=== PATIENT | male | born 1950 | race Caucasian/White ===

== ENCOUNTER 2025-03-28 02:51 | Emergency (ER) | payer MEDICARE, SELFPAY ==
[2025-03-28 02:56] VITALS: BMI 35.8
[2025-03-28 02:58] LABS: Glucose - Point of Care 89 mg/dl (70-99)
[2025-03-28 03:06] VITALS: BP 160/88
[2025-03-28 03:17] LABS: % Basophils 0.4 % (0-2); % Eosinophils 0.1 % (0-6); % Immature Granulocytes 0.4 % (0-0.5); % Lymphocytes 11.2 % (20.5-51.1); % Monocytes 5.5 % (1.7-9.3); % Neutrophils 82.4 % (42.2-75.2); Absolute Monocytes 0.5 10^3/uL (0.1-0.6); Hematocrit 34.6 % (39.0-52.0); Hemoglobin 11.3 g/dL (13.0-18.0); Mean Corp Hgb Conc. 32.7 g/dL (33.0-37.0); Mean Corpuscular Hgb 28.1 pg (27.0-31.0); Mean Corpuscular Volume 86.1 fL (80.0-94.0); Mean Platelet Volume 9.1 fL (7.4-10.4); Nucleated Red Blood Cells % 0 % (-); Platelet Count 214 10^3/uL (130-400); Red Blood Cell Count 4.02 10^6/uL (4.70-6.10); Red Cell Dist. Width 14.8 % (11.5-14.5); White Blood Cell Count 8.5 10^3/uL (4.8-10.8)
--- NOTE | 2025-03-28 03:39 | ED.GENMED ---
History of Present Illness
General
Chief Complaint: Blood Sugar Problem
Source: patient and ambulance crew
Exam Limitations: none
Time Seen by Provider: 03/28/25 03:30
Nursing documentation reviewed up to this point in time: agreed with
History of Present Illness
History of Present Illness:
This is a 74-year-old gentleman who has longstanding history of [id number] diabetes, maintained on glimepiride 4 mg once daily. He also has history of hypertension, chronic kidney disease stage IV, diabetic retinal disease.
He states his blood sugars generally very well-controlled with hemoglobin A1c of 6.5.
More recently, 1 week ago he was acutely hospitalized for 4 days at [facility] after noticing vision changes of his right eye. His ophthalmic tech was concerned for stroke. While hospitalized patient noted to be significantly
hypertensive with systolic blood pressure of 200. He was started on labetalol as well as hydralazine. Coreg was discontinued. He was also started on Plavix and aspirin. Inpatient workup negative for stroke. Diagnosed with retinal branch artery
occlusion.
He presents via EMS tonight after suffering 2 episodes of hypoglycemia at home this evening. Patient states he has been a diabetic for the past 20 years and no previous episodes of hypoglycemia.
Prehospital Accu-Chek 61. He was given 250 mL IV D10 with prompt resolution of confusion.
Accu-Chek upon arrival 89.
Patient had a telehealth visit with his PCP yesterday.
He also follows regularly with nephrology.
During hospitalization at [facility]. Creatinine noted to be 2.79. Trending up from 2.49 previously.
Hemoglobin A1c 6.0.
Past History
Past History
ED Past Medical History: HTN, Hypercholesterolemia, NIDDM, Renal failure (Chronic kidney disease stage IV) and Other (Right eye retinal branch artery occlusion February 2025)
ED Past Surgical History: None
Social History
Tobacco: Non-smoker
Alcohol: None
Living: with family
Employment: Retired
Family History
Family History: Other (Noncontributory)
Phy Exam
Physical Exam
Physical Exam:
GENERAL: 74-year-old gentleman appears his stated age, awake and alert, oriented x 3, pleasant and easily communicative. In no acute distress.
EYE: pupils equal. anicteric
NECK: Supple, nontender, no meningismus, no significant adenopathy.
ENT: oral mucosa is moist. No rhinorrhea.
CARDIAC: Regular rate and rhythm. no murmur.
LUNGS: Clear breath sounds bilaterally, no acute respiratory distress, no wheezes/rales/rhonchi
ABDOMEN: Rotund, soft, nondistended, without focal tenderness
NEUROLOGICAL: Alert and oriented x3, no focal neuro deficits.
SKIN: Warm and dry, normal color, skin intact. No rash.
MUSCULOSKELETAL: No C/C/E. peripheral pulses are full and equal b/l. No palpable tenderness.
PSYCH: Normal and appropriate interaction.
Course
Orders/Labs/Results
Orders:
Orders
03/28/25 03:07
Complete Blood Count/With Diff Urgent
Comprehensive Metabolic Panel Urgent
03/28/25 05:26
Bedside Glucose- Treatment ONCE
Abnormal Lab Results
03/28/25 03/28/25 03/28/25
03:07 04:20 05:27
RBC 4.02 L 10^6/uL
(4.70-6.10)
Hgb 11.3 L g/dL
(13.0-18.0)
Hct 34.6 L %
(39.0-52.0)
MCHC 32.7 L g/dL
(33.0-37.0)
RDW 14.8 H %
(11.5-14.5)
Absolute Neuts (auto) 7.0 H 10^3/uL
(1.4-6.5)
Absolute Lymphs (auto) 1.0 L 10^3/uL
(1.2-3.4)
Neutrophils % 82.4 H %
(42.2-75.2)
Lymphocytes % 11.2 L %
(20.5-51.1)
Chloride 108 H mmol/L
(98-107)
BUN 60 H mg/dl
(9-20)
Creatinine 2.8 H mg/dL
(0.7-1.3)
POC Glucose 64 L mg/dl 113 H mg/dl
(70-99) (70-99)
03/28/25 03:07
03/28/25 03:07
Vital Signs
Initial and Last Documented VS:
Initial Vital Signs
Temp
97.4 F
03/28/25 02:56
Last Documented Vital Signs
Temp Pulse Resp BP Pulse Ox
97.4 F 70 18 158/82 96
03/28/25 02:56 03/28/25 03:06 03/28/25 03:06 03/28/25 04:00 03/28/25 03:06
MDM/Problems Addressed
Differential Diagnosis Includes:
Patient presents with recurrent hypoglycemia in setting of sulfonylurea accompanied with chronic kidney disease.
Systolic blood pressure mildly elevated at 160 but appears to be patient's current baseline.
Overall well in appearance. Appears euvolemic.
Labs are pending. Concern for progression of chronic kidney disease.
Will continue to monitor, assess for potential recurrent hypoglycemia. Will offer oral complex carbohydrate.
Going forward, would recommend decreasing dose of Amaryl from 4 mg to 2 mg daily.
MDM/Problems Addressed:
Diabetes, hypertension, chronic kidney disease
Chronic conditions affecting care: DM, HTN and Kidney disease
*Pulse Oximetry
Patient hypoxic: no
*[place]mer Regulator Interpretation
Rate: normal
Interpretation: normal
Rhythm: sinus
*Critical Care Note
Total Time (30-74mins, 75-104mins- exclusive of procedures): Not Applicable
Update Note
Update Note:
05:30
Blood sugar drifted down to 64 but after consuming a meal has trended up to 88 and now is 113.
Labs remarkable for creatinine of 2.8. Was 2.79 while recently hospitalized.
Patient will be discharged to home. Recommend he decrease his Amaryl dose to 2 mg once daily.
Prompt follow-up with PCP as well as agricultural inspector.
ED Attending Note
-
Portions of this chart may have been created with voice recognition software.� Occasional wrong word or��sound alike� substitutions may have occurred due to the inherent limitations of voice recognition software.
Discharge Plan
Departure
Patient Disposition: Home (Routine Discharge)
Date of Disposition: 03/28/25
Time of Disposition: 05:34
Patient with high blood pressure during this ER visit?: No
Condition: Good
Discharge Problem:
Hypoglycemia associated with diabetes
Instructions: Low blood sugar in people with diabetes
Prescriptions:
No Action
cyclobenzaprine 10 mg Tablet
10 mg PO HS
clonidine HCl 0.1 mg Tablet
0.2 mg PO BID
clopidogrel 75 mg Tablet
75 mg PO DAILY
aspirin 81 mg Capsule,Delayed Release(Dr/Ec)
81 mg PO DAILY
citalopram 20 mg Tablet
20 mg PO DAILY
amlodipine 10 mg Tablet
10 mg PO DAILY
furosemide 40 mg Tablet
40 mg PO DAILY
atorvastatin 40 mg Tablet
40 mg PO HS
donepezil 5 mg Tablet
5 mg PO HS
labetalol 200 mg Tablet
200 mg PO BID
tramadol 50 mg Tablet
100 mg PO Q6H PRN (Reason: pain moderate )
famotidine 20 mg Tablet
20 mg PO BID
glimepiride 4 mg Tablet
4 mg PO BID
montelukast 10 mg Tablet
10 mg PO DAILY
hydralazine 50 mg Tablet
50 mg PO QID
olmesartan 40 mg Tablet
40 mg PO DAILY
dapagliflozin propanediol 10 mg Tablet
10 mg PO DAILY
Referrals:
Brennen Gilbert, DO [Family Provider, Family Practice] - Call in 1-3 days for appt
UNKNOWN - PT DOES,NOT KNOW [Unknown Provider]
Activity Restrictions/Additional Instructions:
Decrease your Amaryl dose to 2 mg once daily in the a.m.
Continue all other medications.
Follow-up promptly with your primary care physician as well as your agricultural inspector.
Over the next several days I want you to monitor your blood sugar often at least 4 times daily.
Interventions
Interventions:
*Risk Screen - Suicide Last Done: 03/28/25 02:56
*General Assessment Last Done: 03/28/25 02:56
*Neglect/Abuse Screening Last Done: 03/28/25 02:56
*ED- Fall Risk Assessment Last Done: 03/28/25 02:56
*ED COVID-19 Vaccine History Last Done: 03/28/25 02:56
ED- Neurological Assessment Last Done: 03/28/25 02:56
Discharge Date and Time
Print Language: GERMAN
[2025-03-28 03:42] LABS: ALT (SGPT) 41 U/L (0-50); AST (SGOT) 39 U/L (17-59); Albumin 4.3 g/dl (3.5-5.0); Alkaline Phosphatase 98 U/L (38-126); Blood Urea Nitrogen 60 mg/dl (9-20); Carbon Dioxide 23 mmol/L (22-30); Chloride 108 mmol/L (98-107); Estimated Creatinine Clearance 27 ml/min; Glucose 88 mg/dl (70-99); Potassium 4.1 mmol/L (3.5-5.1); Sodium 141 mmol/L (135-145); Total Bilirubin 0.5 mg/dl (0.2-1.3); Total Protein 6.8 g/dl (6.3-8.2); eGFR 22.81
[2025-03-28 04:00] VITALS: BP 158/82
[2025-03-28 04:21] LABS: Glucose - Point of Care 64 mg/dl (70-99)
[2025-03-28 04:49] LABS: Glucose - Point of Care 88 mg/dl (70-99)
[2025-03-28 05:00] VITALS: BP 153/75
[2025-03-28 05:29] LABS: Glucose - Point of Care 113 mg/dl (70-99)
[2025-03-28 05:55] VITALS: BP 158/88
== END 2025-03-28 06:50 | disposition home or self-care (01) ==
LOC: EMR 02:51
PROVIDERS: EMERGENCY PHYSICIAN Emergency Medicine; FAMILY PHYSICIAN Family Medicine
DX: E11.649 Type 2 diabetes mellitus with hypoglycemia without coma (principal); I12.9 Hypertensive chronic kidney disease with stage 1 through stage 4 chronic kidney disease, or unspecified chronic kidney disease; N18.4 Chronic kidney disease, stage 4 (severe); E11.22 Type 2 diabetes mellitus with diabetic chronic kidney disease; E11.319 Type 2 diabetes mellitus with unspecified diabetic retinopathy without macular edema; H36 Retinal disorders in diseases classified elsewhere; E78.00 Pure hypercholesterolemia, unspecified; H34.231 Retinal artery branch occlusion, right eye; Z79.84 Long term (current) use of oral hypoglycemic drugs
CPT/HCPCS: 99283; 80053; 82962; 85025

== ENCOUNTER 2025-03-28 21:36 | Inpatient (IN) | payer MEDICARE, SELFPAY ==
[2025-03-28 18:36] VITALS: BP 150/96
[2025-03-28 18:39] LABS: Glucose - Point of Care 53 mg/dl (70-99)
[2025-03-28 18:58] LABS: Glucose - Point of Care 56 mg/dl (70-99)
--- NOTE | 2025-03-28 18:59 | ED.GENMED ---
History of Present Illness
General
Chief Complaint: Blood Sugar Problem
Time Seen by Provider: 03/28/25 18:58
History of Present Illness
History of Present Illness:
TIME OF INITIAL ENCOUNTER:
HPI: Yesterday, the patient was found to be confused. He is a diabetic on glimepiride 4 mg twice daily. EMS noted that he was hypoglycemic and was given D10 at his house and his blood sugar improved. EMS left without transporting the patient to
the hospital. The patient then became confused again and came into the hospital and received additional D10 last night. When he came in last night his initial blood sugar 61, was given 250 mL of D10. It was recommended that he decrease his Amaryl
dosing to 2 mg twice daily. He did take his lower dose of Amaryl this morning. Despite the lower dose, he had additional periods of confusion. Initial blood sugar here was 56 (44 in the lab). Family does not have a glucometer at home.
EXAM:
GENERAL: The patient appears chronically weak and debilitated
HEENT: Moist oral mucosa
CARDIOVASCULAR: No murmurs, normal heart rate, regular rhythm, No chest wall tenderness
PULMONARY: No respiratory distress, breath sounds are clear and equal
ABDOMEN: Soft with no peritoneal signs, no tenderness
NEUROLOGIC: Fair strength all extremities, no coordination deficits
PSYCHIATRIC: Appropriate mental status, normal insight and judgement
EXTREMITIES: Nontender, bilateral lower extremity edema, moves all extremities equally
SKIN: Chronic skin lesions noted right greater than left toes
NUMBER AND COMPLEXITY OF PROBLEMS ADDRESSED AT THE ENCOUNTER
� Chronic conditions affecting care: CKD, NIDDM, high blood pressure
� Acute Exacerbation and/or Progression of Chronic Illness: This is an acute problem
� Differential Diagnosis includes: Adverse side effect from glimepiride, glimepiride overdose, poorly controlled diabetes
AMOUNT AND/OR COMPLEXITY OF DATA TO BE REVIEWED AND ANALYZED
� I performed an independent evaluation of and my interpretation is:
EKG:
CT:
X-rays:
Laboratory Studies: White count 9.8, hemoglobin 12.3. Initial blood sugar upon arrival here is 56 by fingerstick and then 44 in the lab
Other:
� Review of other/old records: Review of the records from last night: He was at [facility] recently and was found to be hypertensive in the setting of vision changes of the right eye. He was initially on labetalol and
hydralazine and then placed on Plavix and aspirin. He was diagnosed with branch retinal artery occlusion.
� Clinical information was obtained by an independent historian: Spoke to son at bedside
� Prescriptions/Medications Considered but not given:
� Further testing considered but not performed:
RISK OF COMPLICATIONS AND/OR MORBIDITY OR MORTALITY OF PATIENT MANAGEMENT
� Social determinants of health affecting care: Lives at home, does not check his blood sugars
� Discussion with other providers: I have asked Dr. Pastor, hospitalist to keep her further observation
� Escalation of care including admission/observation vs risk of discharge considered: This is the third time that the patient sought medical attention for hypoglycemia. Blood sugar again improves with 500 mL of D10 and he was
able to eat here. However he still does not have a glucometer at home. Blood sugar went up to as high as 215 and then rapidly went down to 156 45 minutes later. Consider discharge however the patient's son is very concerned about his blood sugar
fluctuation and he does not check his blood sugars at home. The patient ordered a glucometer at home and that will not arrive until tomorrow. He apparently had rather significant symptoms when he was hypoglycemic.
ANY OTHER UPDATES:
Past History
Past History
ED Past Medical History: HTN, Hypercholesterolemia, NIDDM, Renal failure (Chronic kidney disease stage IV) and Other (Right eye retinal branch artery occlusion February 2025)
ED Past Surgical History: None
Social History
Tobacco: Non-smoker
Alcohol: None
Living: with family
Employment: Retired
Family History
Family History: Other (Noncontributory)
Phy Exam
Physical Exam
Physical Exam:
See HPI
Course
Orders/Labs/Results
Orders:
Orders
03/28/25 Dinner
2000 calorie (17 carb) Diabetic
At Your Request: Limited Participation
Does patient need a safe tray?: No
03/28/25 18:55
Complete Blood Count/With Diff Urgent
Comprehensive Metabolic Panel Urgent
TSH Reflex To Free T4 Urgent
Comment: ADD ON
03/28/25 18:57
Dextrose 50%-Water [Dextrose 50% Syringe] 25 grams .ROUTE .STK-MED ONE
03/28/25 19:00
Dextrose 10%/Water 500 ml [D10w] 500 ml IV 500 mls/hr
03/28/25 19:12
Bedside Glucose- Treatment ONCE
03/28/25 20:15
Bedside Glucose- Treatment ONCE
03/28/25 20:56
Bedside Glucose Monitoring-ONCE As Directed
03/28/25 20:58
Admit/Transfer Patient As Directed
Co-Sign Provider:
Level of Care: Inpatient admission
Assign to:: Medical/Surgical
Physician / Group: [facility]
Diagnosis: Persistent Hypoglycemia
Reason for Hospitalization: Persistent Hypoglycemia
Expected length of stay greater than two midnights?: Yes
ELOS- Estimated Length of Stay in days: 2
I certify the patient meets the requirements for IP care: Yes
03/28/25 20:59
PRN Pain Medication Management As Directed
May give lesser potent ordered pain med per pt: Yes
preference::
Protocol:: Medication orders for pain may be administered in a
manner that supports deferring to patient preference
when the pt is:
- Requesting an ordered lesser potent pain medication.
Least to most potent pain medications are defined
as: acetaminophen < NSAID < tramadol < opioids
(morphine, oxycodone, hydromorphone).
- Requesting a lesser dose of the same medication IF
ORDERED.
- Requesting a less intrusive route of administration
if both routes are prescribed by the provider (PO <
IV).
03/28/25 21:02
Code Status As Directed
Resuscitation Status: Full Code
03/28/25 21:30
Bedside Glucose- Treatment ONCE
03/28/25 22:00
Dextrose 5%/0.9%Sodchl 500 ml [D5/0.9% Sodium Chloride] 500 ml IV 125 mls/hr
Flush (0.9% Sodium Chloride) [Flush (Nss)] See Dose Instructions IV PER PROTOCOL
03/28/25 22:09
Acetaminophen [Tylenol] 650 mg PO Q4HPRN PRN
Atorvastatin [Lipitor] 40 mg PO HS
Dextrose 5%/0.9%Sodchl 1000 ml [D5/0.9% Sodium Chloride] 1,000 ml IV 60 mls/hr
Dextrose 50%-Water [Dextrose 50% Syringe] 12.5 grams IV [id number] PRN
Donepezil [Aricept] 5 mg PO HS
Glucagon [GlucaGen] 1 mg IM PRN PRN
03/28/25 22:09
Diabetes Education Consult Routine
Reason for Consult: Monitor Instruction
Newly Diagnosed?: No
Activity As Directed
Activity Level: Ambulate
With Assistance
Bedside Glucose Monitoring As Directed
Frequency: AC&HS
Additional Instructions:: Change to q6h if pt on TPN, tube feeding or not eating
I/O [Intake/ Output] As Directed
Frequency: Per unit guidelines
Orthostatic Vital Signs As Directed
Orthostatic VS Frequency: BID
Vital Signs As Directed
Frequency: Per unit guidelines
Weight As Directed
Frequency: Daily
Oxygen Therapy [O2 Therapy] [RESP] Routine
Titrate/Wean O2 to maintain O2 sat greater than (%): 94
PT Consult [Pt Eval And Treat] Routine
Activity Level: Ambulate
With Assistance
DX Deep Vein Thrombosis Video Routine
03/29/25 00:00
HydrALAZINE [Apresoline] 50 mg PO Q8
03/29/25 05:46
Basic Metabolic Panel IN AM
Complete Blood Count/No Diff IN AM
Glycohemoglobin (HgbA1c) IN AM
03/29/25 07:30
Insulin Aspart Corrective Low [Novolog Flexpen-Low Resistance] See Protocol SC AC
03/29/25 08:00
Amlodipine [Norvasc] 10 mg PO DAILY
Aspirin Low Dose EC [Aspir Low (Enteric Coated)] 81 mg PO DAILY
Citalopram [Celexa] 20 mg PO DAILY
Clonidine [Catapres] 0.2 mg PO BID
Clopidogrel Bisulfate [Plavix] 75 mg PO DAILY
Famotidine [Pepcid] 20 mg PO DAILY
Montelukast Sodium [Singulair] 10 mg PO DAILY
Olmesartan Medoxomil [Benicar] 40 mg PO DAILY
03/29/25 18:00
Enoxaparin Sodium [Lovenox] 40 mg SC QPM
Abnormal Lab Results
03/28/25 03/28/25 03/28/25
18:38 18:55 18:56
RBC 4.27 L 10^6/uL
(4.70-6.10)
Hgb 12.3 L g/dL
(13.0-18.0)
Hct 36.7 L %
(39.0-52.0)
RDW 15.2 H %
(11.5-14.5)
Absolute Neuts (auto) 7.1 H 10^3/uL
(1.4-6.5)
Absolute Monos (auto) 0.9 H 10^3/uL
(0.1-0.6)
Lymphocytes % 17.0 L %
(20.5-51.1)
Potassium 5.2 H D mmol/L
(3.5-5.1)
Chloride 109 H mmol/L
(98-107)
Carbon Dioxide 19 L mmol/L
(22-30)
BUN 64 H mg/dl
(9-20)
Creatinine 2.7 H mg/dL
(0.7-1.3)
Glucose 44 L* mg/dl
(99)
POC Glucose 53 L* mg/dl 56 L mg/dl
() (99)
03/28/25 03/28/25 03/28/25
19:36 20:12 20:58
RBC
Hgb
Hct
RDW
Absolute Neuts (auto)
Absolute Monos (auto)
Lymphocytes %
Potassium
Chloride
Carbon Dioxide
BUN
Creatinine
Glucose
POC Glucose 215 H mg/dl 156 H mg/dl 107 H mg/dl
() (99) (99)
03/28/25 18:55
03/28/25 18:55
Vital Signs
Initial and Last Documented VS:
Initial Vital Signs
Temp Pulse Resp BP Pulse Ox
36.9 C 83 16 150/96 98
03/28/25 18:36 03/28/25 18:36 03/28/25 18:36 03/28/25 18:36 03/28/25 18:36
Last Documented Vital Signs
Temp Pulse Resp BP Pulse Ox
36.2 C 80 20 177/82 95
03/30/25 11:31 03/30/25 11:31 03/30/25 11:31 03/30/25 11:31 03/30/25 11:31
*Critical Care Note
Total Time (30-74mins, 75-104mins- exclusive of procedures): Not Applicable
ED Attending Note
-
Portions of this chart may have been created with voice recognition software.� Occasional wrong word or��sound alike� substitutions may have occurred due to the inherent limitations of voice recognition software.
Discharge Plan
Departure
Patient Disposition: Admit
Date of Disposition: 03/28/25
Time of Disposition: 20:28
Presentation/result/management discussed w/ accepting MD/DO: Hospitalist
Discharge Problem:
Hypoglycemia secondary to sulfonylurea
Interventions
Interventions:
*Risk Screen - Suicide Last Done: 03/28/25 23:18
*Neglect/Abuse Screening Last Done: 03/28/25 18:36
*ED COVID-19 Vaccine History Last Done: 03/28/25 23:18
*Nursing Disposition Last Done: 03/28/25 22:23
ED- Neurological Assessment Last Done: 03/28/25 19:05
Discharge Date and Time
Discharge Date/Time: 03/28/25 22:24
[2025-03-28] MEDS: D10W 500 IV (19:01)
[2025-03-28 19:04] LABS: % Basophils 0.7 % (0-2); % Eosinophils 0.1 % (0-6); % Immature Granulocytes 0.4 % (0-0.5); % Monocytes 9.2 % (1.7-9.3); % Neutrophils 72.6 % (42.2-75.2); Absolute Basophils 0.1 10^3/uL (0-0.2); Absolute Lymphocytes 1.7 10^3/uL (1.2-3.4); Absolute Monocytes 0.9 10^3/uL (0.1-0.6); Absolute Neutrophils 7.1 10^3/uL (1.4-6.5); Hematocrit 36.7 % (39.0-52.0); Hemoglobin 12.3 g/dL (13.0-18.0); Mean Corp Hgb Conc. 33.5 g/dL (33.0-37.0); Mean Corpuscular Hgb 28.8 pg (27.0-31.0); Mean Corpuscular Volume 85.9 fL (80.0-94.0); Mean Platelet Volume 9.1 fL (7.4-10.4); Nucleated Red Blood Cells % 0 % (-); Platelet Count 260 10^3/uL (130-400); Red Blood Cell Count 4.27 10^6/uL (4.70-6.10); Red Cell Dist. Width 15.2 % (11.5-14.5); White Blood Cell Count 9.8 10^3/uL (4.8-10.8)
[2025-03-28 19:21] LABS: ALT (SGPT) 42 U/L (0-50); AST (SGOT) 42 U/L (17-59); Albumin 4.8 g/dl (3.5-5.0); Alkaline Phosphatase 92 U/L (38-126); Blood Urea Nitrogen 64 mg/dl (9-20); Calcium 9.2 mg/dl (8.4-10.2); Carbon Dioxide 19 mmol/L (22-30); Chloride 109 mmol/L (98-107); Glucose 44 mg/dl (70-99); Potassium 5.2 mmol/L (3.5-5.1); Sodium 140 mmol/L (135-145); Total Bilirubin 0.5 mg/dl (0.2-1.3); Total Protein 7.7 g/dl (6.3-8.2); eGFR 23.83
[2025-03-28 19:39] LABS: Glucose - Point of Care 215 mg/dl (70-99)
[2025-03-28 20:14] LABS: Glucose - Point of Care 156 mg/dl (70-99)
[2025-03-28] MEDS: D10W IV (20:58)
[2025-03-28 21:00] LABS: Glucose - Point of Care 107 mg/dl (70-99)
--- NOTE | 2025-03-28 21:06 | HPS.HSE ---
Family Physician
-
Family Physician: NOT KNOW UNKNOWN - PT DOES
Chief Complaint
-
Confusion / Shaking
History of Present Illness
Patient is a 74y M with PMH significant for hypertension and DM-II who presents to ED complaining of confusion and tremulousness. History obtained from patient and his son at the bedside. Patient was recently hospitalized at [facility] for
stroke evaluation after vision changes (L eye) that he noted one week ago. He states that his BP med regimen was adjusted during that stay for uncontrolled hypertension. His stroke eval was reportedly unremarkable. Patient was discharged 2-3 days
ago. For the past 2 evenings, patient has woken in the middle of the night confused. He has been 'trashing around' and incoherent according to his son. EMS was called and noted patient to have glucose in the 40s. He was treated with supplemental
glucose and felt improved. He had a second episode early this AM. He was again found to be hypoglycemic and this time was brought to the ED for evaluation. In the ED, his glucose stabilized and he was discharged to home. He was advised to
decrease his glimepiride from 4mg BID to 2mg daily. He took a 2mg dose this AM.
This afternoon he began to feel 'shaky' and somewhat confused. He drank orange juice and took glucose tabs with some temporary improvement; however, his symptoms returned a short time later.
With persistent / recurrent symptoms, patient presented to the ED for further evaluation.
In the ED, patient was noted to have a glucose in the 50s initially. He was given supplemental dextrose and his sugar increased to 215. One hour later, his glucose was 107.
Patient states that none of his DM medications were changes during his recent hospitalization. He denies any recent outpatient changes. He denies any prior history of hypoglycemia issues.
Medical History
Past Medical History
Past Medical History: Reports Other
Additional Past Medical History:
Hypertension
DM-II
Obesity
Mild Dementia
ASCVD / CVA / TIA
Anxiety / Depression
Asthma
Past Surgical History: Reports Other
Additional Past Surgical History:
T&A
Social History
Tobacco: Non-smoker
Alcohol: None
Drug: None
Family History
Family History: Not pertinent
Allergies / Home Medications
Allergies reflects when Allergies were last updated in [employer].
Home Medications with original date entered in [employer]
Allergy/Medication List:
Allergies
Allergy/AdvReac Type Severity Reaction Status Date / Time
No Known Allergies Allergy Verified 03/28/25 18:39
Home Medications
amlodipine 10 mg tablet 10 mg PO DAILY 03/28/25
aspirin 81 mg capsule,delayed release 81 mg PO DAILY 03/28/25
atorvastatin 40 mg tablet 40 mg PO HS 03/28/25
citalopram 20 mg tablet 20 mg PO DAILY 03/28/25
clonidine HCl 0.1 mg tablet 0.2 mg PO BID 03/28/25
clopidogrel 75 mg tablet 75 mg PO DAILY 03/28/25
cyclobenzaprine 10 mg tablet 10 mg PO HS 03/28/25
dapagliflozin propanediol 10 mg tablet 10 mg PO DAILY 03/28/25
donepezil 5 mg tablet 5 mg PO HS 03/28/25
famotidine 20 mg tablet 20 mg PO BID 03/28/25
glimepiride 4 mg tablet 4 mg PO BID 03/28/25
hydralazine 50 mg tablet 50 mg PO Q8H 03/28/25
labetalol 200 mg tablet 200 mg PO BID 03/28/25
montelukast 10 mg tablet 10 mg PO DAILY 03/28/25
olmesartan 40 mg tablet 40 mg PO DAILY 03/28/25
tramadol 50 mg tablet 100 mg PO Q6H PRN pain moderate 03/28/25
Review of Systems
-
History Source: Patient
A 12 point ROS was completed and negative except as noted: Yes
Constitutional: Reports Fatigue; Denies Fever or Chills
Respiratory: Denies Cough or Trouble Breathing
Cardiac: Denies Chest Pain or Palpitations
Abdomen/GI: Denies Abdominal Pain, Nausea, Vomiting or Diarrhea
: Denies Dysuria or Frequency
Musculoskeletal: Reports Joint Pain (chronic knee pain); Denies Edema
Neurological: Denies Dizzy or Headache
Psych: Denies Depression or Anxiety
Physical Exam
Vital Signs
Vital Signs
Temp Pulse Resp BP Pulse Ox
98.4 F 85 16 150/96 98
03/28/25 18:36 03/28/25 20:45 03/28/25 20:45 03/28/25 18:36 03/28/25 18:36
Physical Exam
General: Other (74y M in no acute distress. Mildly / diffusely tremulous.)
HEENT: Moist mucous membranes and PERRLA
Respiratory: Clear; No Wheezes, Rales or Rhonchi
Cardiac: S1/S2 and Regular Rhythm; No Murmur
GI: Soft, Non Tender, Non Distended and Normal Bowel Sounds
Musculoskeletal: No Clubbing, No Cyanosis and Other (Trace LE edema. Dressing in place over the R drake without bleeding / strikethrough.)
Neuro: AO x 3 and Nonfocal/grossly intact
Laboratory Results
-
03/28/25 18:55
03/28/25 18:55
Laboratory Results
Total Bilirubin 0.5 mg/dl (0.2-1.3) 03/28/25 18:55
AST 42 U/L (17-59) 03/28/25 18:55
ALT 42 U/L (0-50) 03/28/25 18:55
Alkaline Phosphatase 92 U/L (38-126) 03/28/25 18:55
Impression/Plan
-
A/P: Patient is a 74y M with PMH significant for hypertension and DM-II who presents to ED for evaluation of persistent / recurrent hypoglycemia.
DM-II with Hypoglycemia
- Admit for further evaluation and treatment.
- Patient with persistent sulfonylurea-induced hypoglycemia requiring ongoing supplemental dextrose infusion.
- Hold all DM medications acutely (glimepiride / Farxiga).
- Follow glucose q1 hour for now until stable.
- Resume DM meds when appropriate - consider alternate meds to sulfonylureas to avoid future hypoglycemia.
- Update A1C.
- DM Education. Needs monitor / instruction (has no monitor at home).
Benign Hypertension
- Stable. s/p recent hospitalization with multiple med changes.
- Continue majority of meds for now with holding parameters.
- Adjust as needed.
- Will hold labetalol acutely to avoid masking any symptoms of hypoglycemia.
DJD
Chronic Ambulatory Dysfunction secondary to the above
- Chronic b/l knee pain.
- Continue supportive care.
- Son notes that patient is unsteady at baseline - PT eval.
Obesity due to excess calories
- Affects all aspects of care including joint pain / gait dysfunction.
- Patient does report about 30 lbs of gradual weight loss over the past year or so.
- Continue efforts at weight reduction.
DVT Prophylaxis: Lovenox
Code Status: Full
[2025-03-28 22:38] VITALS: BP 168/85; BMI 34.8
[2025-03-28 22:38] LABS: Glucose - Point of Care 61 mg/dl (70-99)
[2025-03-28] MEDS: D5/0.9% SODIUM CHLORIDE 500 IV (22:52)
[2025-03-28 22:56] LABS: Glucose - Point of Care 57 mg/dl (70-99)
[2025-03-28] MEDS: ARICEPT 5 MG PO (23:04)
[2025-03-28] MEDS: LIPITOR 40 MG PO (23:04)
[2025-03-28] MEDS: APRESOLINE 50 MG PO (23:04)
[2025-03-28 23:13] LABS: Glucose - Point of Care 94 mg/dl (70-99)
[2025-03-28 23:39] LABS: TSH Reflex To Free T4 3.05 uIU/ml (0.47-4.68)
[2025-03-28 23:51] LABS: Glucose - Point of Care 101 mg/dl (70-99)
[2025-03-29] VITALS (9 sets, daily range): BP systolic 139–221; BP diastolic 74–113; PULSE 71–90; O2SAT 97; BMI 34.8
[2025-03-29 00:52] LABS: Glucose - Point of Care 79 mg/dl (70-99)
[2025-03-29 03:03] LABS: Glucose - Point of Care 76 mg/dl (70-99)
[2025-03-29] MEDS: D5/0.9% SODIUM CHLORIDE 1000 IV ×2 (03:13→16:17)
[2025-03-29 06:40] LABS: Hematocrit 32.2 % (39.0-52.0); Hemoglobin 10.6 g/dL (13.0-18.0); Mean Corp Hgb Conc. 32.9 g/dL (33.0-37.0); Mean Corpuscular Hgb 28.5 pg (27.0-31.0); Mean Corpuscular Volume 86.6 fL (80.0-94.0); Mean Platelet Volume 9.6 fL (7.4-10.4); Platelet Count 245 10^3/uL (130-400); Red Blood Cell Count 3.72 10^6/uL (4.70-6.10); Red Cell Dist. Width 15.4 % (11.5-14.5); White Blood Cell Count 6.2 10^3/uL (4.8-10.8)
[2025-03-29 07:02] LABS: Blood Urea Nitrogen 56 mg/dl (9-20); Calcium 8.6 mg/dl (8.4-10.2); Carbon Dioxide 24 mmol/L (22-30); Chloride 110 mmol/L (98-107); Estimated Creatinine Clearance 29 ml/min; Glucose 61 mg/dl (70-99); Potassium 4.5 mmol/L (3.5-5.1); Sodium 141 mmol/L (135-145); eGFR 24.94
[2025-03-29 07:20] LABS: Glucose - Point of Care 76 mg/dl (70-99)
[2025-03-29] MEDS: CATAPRES 0.2 MG PO ×2 (08:54→21:38)
[2025-03-29] MEDS: ASPIR LOW (ENTERIC COATED) 81 MG PO (08:54)
[2025-03-29] MEDS: BENICAR 40 MG PO (08:54)
[2025-03-29] MEDS: CELEXA 20 MG PO (08:55)
[2025-03-29] MEDS: APRESOLINE 50 MG PO ×3 (08:55→23:38)
[2025-03-29] MEDS: SINGULAIR 10 MG PO (08:55)
[2025-03-29] MEDS: NORVASC 10 MG PO (08:55)
[2025-03-29] MEDS: PLAVIX 75 MG PO (08:55)
[2025-03-29] MEDS: PEPCID 20 MG PO (08:55)
[2025-03-29 10:06] LABS: Glycohemoglobin (HgbA1c) 5.8 % (4.0-5.6)
--- NOTE | 2025-03-29 11:22 | PTCARENOTE ---
Addendum entered by Tami Nielsen RN 03/29/25 11:35:
I placed call to RN at office of Dr. Brennen Gilbert, patient's PCP. Requested order for GVoke hypo pen and CGM per patient request.
Original Note:
03/29/2025 DIABETES EDUCATION CONSULT
I met with Dennis to review diabetes management. He was admitted with hypoglycemic episode requiring assistance.
He was at the eye doctor who saw blockage in eye, sent him to ER for stroke workup. Vision occlusion has resolved, states he is negative for stroke. and was sent home. Yesterday, he woke up feeling 'out of it' and EMS was called. Glucose was in
the 40's. His provider decreased his Glimepiride from 4 mg BID to 2 mg QD. He states that his diet has not changed, was not overly active after dinner; has had DM for 20 years and his last HbA1c was 6.4% approximately 6 months ago. He has been
on Glimepiride 4 mg for years (prior to changing to 2 mg) and Farxiga in September 2024.
I educated on mechanism of action and proper timing of Glimepiride with meals, states he has been taking appropriately. Educated on mechanism of action of Farxiga, s/e of UTI and educated to report burning with urination; and that he is at
greater risk of hypoglycemia with Farxiga AND Glimepiride.
I educated on physiology of T2D, organ damage, managing with medications, monitoring BG, nutrition, activity, sleep and managing stress. I reinforced signs of hyperglycemia, hypoglycemia and hypoglycemia protocol; BS parameters and recommended HbA1c
goals, glucometer and CGM instructions, glucose tracker, medic alert bracelet and outpatient DSME program. Written material provided.
We discussed normal target glucose ranges and a monitoring schedule as recommended by MD. He states he has never checked his glucose in the past, relied on HbA1c for management. I suggested he check glucose prior to bed and to eat a snack of
glucose is < 100 mg/dL to help prevent nighttime hypoglycemia.
I educated and reviewed using Contour Next glucometer, member acknowledged understanding, declined a self demonstration because he has received many finger sticks while inpatient and his hands are sore. Provided him with a Contour Next sample kit,
he states his PCP has a glucose meter on order at the pharmacy and is waiting on a return call for a post d/c appointment.
I educated on a CGM with alarms to monitor for hypoglycemia. I educated on Gvoke glucose pen, demonstrated and provided brochure with copay card. He would like me to contact his PCP to request orders for Gvoke pen and CGM.
Patient verbalized understanding.
[2025-03-29 12:25] LABS: Glucose - Point of Care 108 mg/dl (70-99)
--- NOTE | 2025-03-29 13:47 | W.PN.HOSP.TC ---
Today's Communication/Plan
-
slow IVF
resume Labetalol due to elevated BP
stop Glimepiride
hold Farxiga, , may consider resumption post dc
Assessment / Plan
Assessment / Plan
A/P: Patient is a 74y M with PMH significant for hypertension and DM-II who presents to ED for evaluation of persistent / recurrent hypoglycemia.
DM-II with Hypoglycemia
- Admit for further evaluation and treatment.
- Patient with persistent sulfonylurea-induced hypoglycemia requiring ongoing supplemental dextrose infusion.
- stop glimepiride totally, consider resumption of Farxiga pending tomorrow's labs
- Resume DM meds when appropriate - consider alternate meds to sulfonylureas to avoid future hypoglycemia.
- 5.8% A1C.
- DM Education. Needs monitor / instruction (has no monitor at home).
Benign Hypertension
- BP is significantly elevated, Labetalol on hold, will resume
- Continue majority of meds for now with holding parameters.
- Adjust as needed.
acute on CKD
call placed to PCP office, Brennen Mckeon [phone]
07/24 BUN/Creat was 36/2.5, now 64/2.7. Prerenal azotemia probably a major component of hypoglycemia
DJD
Chronic Ambulatory Dysfunction secondary to the above
- Chronic b/l knee pain.
- Continue supportive care.
- Son notes that patient is unsteady at baseline - PT eval.
Obesity due to excess calories
- Affects all aspects of care including joint pain / gait dysfunction.
- Patient does report about 30 lbs of gradual weight loss over the past year or so.
- Continue efforts at weight reduction.
DVT Prophylaxis: Lovenox
discussed with son, by phone
Code Status: Full
Anticipated Discharge: 24 - 48 hours
Subjective/Interval History
-
Date of Service: March 29, 2025
Awake, alert, conversant
Objective Data
-
Labs:
Laboratory Results
03/29/25
05:46
WBC 6.2
Hgb 10.6 L
Hct 32.2 L
Plt Count 245
Sodium 141
Potassium 4.5
Chloride 110 H
Carbon Dioxide 24
BUN 56 H
Creatinine 2.6 H
Glucose 61 L
Calcium 8.6
Vital Signs:
Vital Signs
Temp Pulse Resp BP Pulse Ox
98.4 F 80 20 166/88 96
03/29/25 07:20 03/29/25 10:00 03/29/25 10:00 03/29/25 10:00 03/29/25 09:00
I&O
03/28/25 03/29/25 03/30/25
06:59 06:59 06:59
Output Total 1700 / 1700
Balance -1700 / -1700
Review of Systems
-
History Source: Patient, Family (reviewed with son by phone) and Coordinated Provider (reviewed with SHONNA Jones)
Constitutional: Reports No Symptoms
EENT: Reports No Symptoms Reported
Respiratory: Reports No Symptoms
Cardiac: Reports No Symptoms
Genitourinary: Reports No Symptoms
Musculoskeletal: Reports No Symptoms
Neuro: Reports No Symptoms
Physical Exam
-
General: Well Developed, Well Nourished and No Apparent Distress
HEENT: Normocephalic, Atraumatic and Moist Mucous Membranes
Respiratory: Clear to Auscultation; Negative Wheezes, Rales or Rhonchi
Cardiac: Regular Rhythm and S1/S2
GI: Soft, Nontender and Nondistended
Musculoskeletal: No Clubbing, No Cyanosis and No Edema
Neuro: Awake, Alert and Oriented
--- NOTE | 2025-03-29 13:49 | WOUNDNOTE ---
WO RN note: Patient admitted with persistent hypoglycemia. Patient lives with his son. He is followed by wound care center.
See H&P for complete history.
PMH: HTN, DM, recent hospital stay at hospital, mild dementia, obesity, 30lb weight loss over the last year, ASCVD/CVA/TIA, anxiety/depression, asthma, DJD, venous stasis.
Wound Location and type/assessment: Patient admitted with: R 2nd,3rd, 4th toe scabbed abrasions. Small scabbed abrasion bilateral anterior LE. R upper drake dermal pink abrasion. +1 LE edema. +Pedal pulses. Toes warm. Patient wears size F Tubigrip.
Coccyx crease and groin MASD. Sacral small bruise. L ischial small scabbed abrasion vs healing stage 2 pressure injury. Unable to do a complete buttocks skin assessment d/t patient was unable to stand. He is sitting in a fern with an air chair
cushion and he can lean from side to side. Will request SHONNA Jones to assess patient's buttocks/kirstin skin when patient back in bed.
Appetite: good.
Pressure redistribution devices in place: [employer] Accumax. Patient can turn in bed as per PCT Gerri.
Plan: R drake silicone border foam changed on RLE. Dry gauze applied to R toe scabbed abrasions for protection. Dr. Castro was in who approved local skin care and bilateral knee high Tubigrip.
Care plan to be updated. Will sign off. Call if needed. Patient for possible discharge tomorrow as per patient. Patient to follow up with [facility] and plans to make appointment with a frame bander for Toenail care.
--- NOTE | 2025-03-29 14:10 | WOUNDNOTE ---
Renea ALBRIGHT (LOWER)
--- NOTE | 2025-03-29 14:11 | WOUNDNOTE ---
Renea ALBRIGHT ([facility])
[2025-03-29] MEDS: TRANDATE 200 MG PO ×2 (14:47→21:38)
--- NOTE | 2025-03-29 15:06 | CM ---
Alert awake oriented patient who lives with his son Volodymyr [phone] who lives in an [address] with no steps to enter. They have elevators. He is independent in all activities of daily living but does have assistance with meals .He was offered
VN he requested [facility] resumption.
[facility] hx / No SNF history
Pharmacy [facility]
PCP DR Brennen Gilbert
PLAN Home with [facility]
--- NOTE | 2025-03-29 15:22 | PTCARENOTE ---
Received patient this am AAOx3. Pt forgetful at times. Pt's B/P range 166-221 Systolically 80-[address] Castro made aware. Pt given am antihypertensive meds. B/p recheck was 166/88. Pt then became hypertensive again. 14:45 B/P
195/99 HR-76. Pt medicated with Labetalol as ordered. Pt tolerated diet well. Pt OOB to chair with assistance x2. Offered no complaints. Made patient comfortable. Cont to assess patient status.
[2025-03-29 17:16] LABS: Glucose - Point of Care 85 mg/dl (70-99)
[2025-03-29] MEDS: LOVENOX 40 MG SC (17:25)
[2025-03-29 21:04] LABS: Glucose - Point of Care 156 mg/dl (70-99)
[2025-03-29] MEDS: ARICEPT 5 MG PO (21:38)
[2025-03-29] MEDS: DESENEX/MITRAZOL/ZEASORB 1 APPLIC TOPICAL (21:38)
[2025-03-29] MEDS: LIPITOR 40 MG PO (21:38)
[2025-03-30 00:08] VITALS: BP 139/71; BP 147/80; PULSE 80; PULSE 84
[2025-03-30 05:05] VITALS: BMI 35.3
[2025-03-30] MEDS: D5/0.9% SODIUM CHLORIDE 1000 IV (06:02)
[2025-03-30 07:15] LABS: Glucose - Point of Care 115 mg/dl (70-99)
[2025-03-30 07:20] VITALS: BP 200/110
[2025-03-30] MEDS: CATAPRES 0.2 MG PO (08:34)
[2025-03-30] MEDS: CELEXA 20 MG PO (08:34)
[2025-03-30] MEDS: NORVASC 10 MG PO (08:34)
[2025-03-30] MEDS: ASPIR LOW (ENTERIC COATED) 81 MG PO (08:34)
[2025-03-30] MEDS: BENICAR 40 MG PO (08:35)
[2025-03-30] MEDS: TRANDATE 200 MG PO (08:35)
[2025-03-30] MEDS: SINGULAIR 10 MG PO (08:35)
[2025-03-30] MEDS: PLAVIX 75 MG PO (08:35)
[2025-03-30] MEDS: APRESOLINE 50 MG PO (08:35)
[2025-03-30] MEDS: PEPCID 20 MG PO (08:35)
[2025-03-30] MEDS: DESENEX/MITRAZOL/ZEASORB 1 APPLIC TOPICAL (08:42)
[2025-03-30 08:53] LABS: % Basophils 0.9 % (0-2); % Eosinophils 0.2 % (0-6); % Immature Granulocytes 0.4 % (0-0.5); % Lymphocytes 23.4 % (20.5-51.1); % Monocytes 10.4 % (1.7-9.3); % Neutrophils 64.7 % (42.2-75.2); Absolute Basophils 0.1 10^3/uL (0-0.2); Absolute Lymphocytes 1.3 10^3/uL (1.2-3.4); Absolute Monocytes 0.6 10^3/uL (0.1-0.6); Absolute Neutrophils 3.7 10^3/uL (1.4-6.5); Hematocrit 33.4 % (39.0-52.0); Hemoglobin 10.7 g/dL (13.0-18.0); Mean Corpuscular Hgb 28.3 pg (27.0-31.0); Mean Corpuscular Volume 88.4 fL (80.0-94.0); Mean Platelet Volume 9.7 fL (7.4-10.4); Nucleated Red Blood Cells % 0 % (-); Platelet Count 267 10^3/uL (130-400); Red Blood Cell Count 3.78 10^6/uL (4.70-6.10); Red Cell Dist. Width 15.6 % (11.5-14.5); White Blood Cell Count 5.7 10^3/uL (4.8-10.8)
[2025-03-30 09:36] LABS: Blood Urea Nitrogen 45 mg/dl (9-20); Calcium 8.8 mg/dl (8.4-10.2); Carbon Dioxide 25 mmol/L (22-30); Chloride 113 mmol/L (98-107); Estimated Creatinine Clearance 36 ml/min; Glucose 110 mg/dl (70-99); Potassium 4.9 mmol/L (3.5-5.1); Sodium 143 mmol/L (135-145); eGFR 32.22
[2025-03-30 11:31] VITALS: BP 177/82; BP 188/92; PULSE 80; PULSE 88
[2025-03-30 12:12] LABS: Glucose - Point of Care 190 mg/dl (70-99)
--- NOTE | 2025-03-30 12:31 | W.PN.HOSP.TC ---
Addendum entered and electronically signed by Dylan Castro MD 04/01/25 16:09:
Encephalopathy - metabolic, caused by prolonged and intense hypoglycemia
fully resolved prior to dc
Addendum entered and electronically signed by Dylan Castro MD 04/01/25 16:08:
TITO on ckd 3
Farxiga dose decreased to decrease prerenal azotemic effects of the Farxiga
Addendum entered and electronically signed by Dylan Castro MD 04/01/25 16:06:
Wound note indicates Stage 2 left ischial pressure injury, POA
Original Note:
Today's Communication/Plan
-
dc to home
Assessment / Plan
Assessment / Plan
A/P: Patient is a 74y M with PMH significant for hypertension and DM-II who presents to ED for evaluation of persistent / recurrent hypoglycemia.
DM-II with Hypoglycemia
- Admit for further evaluation and treatment.
- Patient with persistent sulfonylurea-induced hypoglycemia requiring ongoing supplemental dextrose infusion.
- stop glimepiride totally, consider resumption of Farxiga pending tomorrow's labs
- Resume DM meds when appropriate - consider alternate meds to sulfonylureas to avoid future hypoglycemia.
- 5.8% A1C.
- DM Education. Needs monitor / instruction (has no monitor at home).
Benign Hypertension
- BP is significantly elevated, Labetalol on hold, will resume, will increase to tid
- Continue majority of meds for now with holding parameters.
- Adjust as needed.
acute on CKD
call placed to PCP office, Brennen Mckeon [phone]
07/24 BUN/Creat was 36/2.5, now 64/2.7. Prerenal azotemia probably a major component of hypoglycemia
DJD
Chronic Ambulatory Dysfunction secondary to the above
- Chronic b/l knee pain.
- Continue supportive care.
- Son notes that patient is unsteady at baseline - PT eval.
Obesity due to excess calories
- Affects all aspects of care including joint pain / gait dysfunction.
- Patient does report about 30 lbs of gradual weight loss over the past year or so.
- Continue efforts at weight reduction.
DVT Prophylaxis: Lovenox
discussed with son, will dc now
see dictated note
More than 30 minutes spent in discharge including
Final examination of the patient
Summarizing hospital stay
Instructions for continuing care to all relevant caregivers
Preparation of discharge records, prescriptions, and referral forms
Total time spent (in minutes): 45
Code Status: Full
Anticipated Discharge: Today
Subjective/Interval History
-
Date of Service: March 30, 2025
Feels well
Objective Data
-
Labs:
Laboratory Results
03/30/25
07:20
WBC 5.7
Hgb 10.7 L
Hct 33.4 L
Plt Count 267
Sodium 143
Potassium 4.9
Chloride 113 H
Carbon Dioxide 25
BUN 45 H
Creatinine 2.1 H
Glucose 110 H
Calcium 8.8
Vital Signs:
Vital Signs
Temp Pulse Resp BP Pulse Ox
97.1 F 80 20 177/82 95
03/30/25 11:31 03/30/25 11:31 03/30/25 11:31 03/30/25 11:31 03/30/25 11:31
I&O
03/29/25 03/30/25 03/31/25
06:59 06:59 06:59
Intake Total 1680 / 1680
Output Total 1700 / 1700 2425 / 2425
Balance -1700 / -1700 -745 / -745
Review of Systems
-
History Source: Patient, Family (reviewed with son in room and at computer) and Coordinated Provider (reviewed with SHONNA Jones)
Constitutional: Reports No Symptoms
EENT: Reports No Symptoms Reported
Respiratory: Reports No Symptoms
Cardiac: Reports No Symptoms
Genitourinary: Reports No Symptoms
Musculoskeletal: Reports No Symptoms
Neuro: Reports No Symptoms
Physical Exam
-
General: Well Developed, Well Nourished and No Apparent Distress
HEENT: Normocephalic, Atraumatic and Moist Mucous Membranes
Respiratory: Clear to Auscultation; Negative Wheezes, Rales or Rhonchi
Cardiac: Regular Rhythm and S1/S2
GI: Soft, Nontender and Nondistended
Musculoskeletal: No Clubbing, No Cyanosis and No Edema
Neuro: Awake, Alert and Oriented
--- NOTE | 2025-03-30 13:21 | W.DS.TRANS ---
DC Summary - Boatswains Mate
-
Discharge Instructions:
Discharge Diagnosis/Procedures Hypoglycemia
Diet Diabetic, Carb Controlled
Activity No strenuous activity
Driving Restrictions Not until seen by your Dr
Bathing Restrictions None
Blood Work cbc, cmp in 1 week
Others Tests check glucose 2-4x per day. Check BP 2x per day
Other Services VN,PT
Instructions:
Stand-Alone Forms:
Changes to Home Medications: Yes
Discharge Medications:
DC Medications w/original date entered in [address]
amlodipine 10 mg tablet 10 mg PO DAILY Blood Pressure 03/28/25
aspirin 81 mg capsule,delayed release 81 mg PO DAILY Blood Clot Prevention/Tx 03/28/25
atorvastatin 40 mg tablet 40 mg PO HS Hormonal Agent 03/28/25
citalopram 20 mg tablet 20 mg PO DAILY Depression 03/28/25
clonidine HCl 0.1 mg tablet 0.2 mg PO BID Blood Pressure 03/28/25
cyclobenzaprine 10 mg tablet 10 mg PO HS Muscle Spasms 03/28/25
donepezil 5 mg tablet 5 mg PO HS Mental Health/Anxiety 03/28/25
famotidine 20 mg tablet 20 mg PO BID Gastrointestinal Issue 03/28/25
hydralazine 50 mg tablet 50 mg PO Q8H Blood Pressure 03/28/25
montelukast 10 mg tablet 10 mg PO DAILY Allergies 03/28/25
olmesartan 40 mg tablet 40 mg PO DAILY Blood Pressure 03/28/25
tramadol 50 mg tablet 100 mg PO Q6H PRN pain moderate 03/28/25
clopidogrel 75 mg tablet 75 mg PO DAILY Blood Clot Prevention/Tx #0 tabs 03/30/25
dapagliflozin propanediol 10 mg tablet 5 mg (1/2 x 10 mg) PO DAILY Diabetes #0 tabs 03/30/25
labetalol 200 mg tablet 200 mg PO TID Blood Pressure #0 tabs 03/30/25
Home Medication Changes
decrease Dapagliflozin to 1/2 of a tablet daily
increase labetalol to tid
stop Glimepiride
Pending Results: No
--- NOTE | 2025-04-01 10:00 | PN.CDI ---
CDI
- -
CDI:
Physician Documentation Request
Admit Date: 03/28/25 21:36
Dear Doctor Matthew,
Please review the following and provide your response in the progress notes.
Clinical Indicators:
- Wound note indicates Stage 2 left ischial pressure injury, POA
Physician documentation of the type and location of wounds is required for compliant documentation. Based on the above clinical findings and your assessment, please provide the following in your progress note:
1. Location of the ulcer/wound, including laterality.
2. Type (etiology) of ulcer/wound:
- Diabetic ulcer
- Arterial (ischemic) ulcer
- Venous stasis ulcer
- Pressure (decubitus) ulcer
- Other
Use of terms such as suspected, likely, concern for, or probable (associated with a specific diagnosis that is being evaluated, monitored, or treated as if it exists) are acceptable and can be coded in the inpatient setting, when documented at the
time of discharge.
Thank you,
Yovanny Hayden RN
CDI Specialist
Please use your independent medical judgment in providing your response.
*Source: National Pressure Ulcer Advisory Panel (NPUAP)
--- NOTE | 2025-04-01 10:03 | PN.CDI ---
CDI
- -
CDI:
Physician Documentation Request
Admit Date: 03/28/25 21:36
Dear Doctor Matthew,
Please review the following and provide your response in the progress notes.
Clinical Indicators:
- Patient admit for diabetes with hypoglycemia
- 03/30 PN 'acute on CKD'
- '07/24 BUN/Creat was 36/2.5, now 64/2.7'
Laboratory Tests
03/28/25 03/29/25 03/30/25
18:55 05:46 07:20
Creatinine 2.7 H 2.6 H 2.1 H
eGFR 23.83 24.94 32.22
Please clarify which of the following accurately represents the patient's renal status:
CKD 4
TITO on ckd 3
Other (please specify)
Criteria for TITO*
1 Increase in serum creatinine by > or = to 0.3 mg/dL (> or = to 26.5 micromol/L) within 48 hours, OR
2 Increase in serum creatinine to > or = to 1.5 times baseline, which is known or presumed to have occurred within 7 days, OR
3 Urine volume < 0.5 nL/kg/hour for six hours
Stages of Chronic Kidney Disease*
Level Description GFR
G1 Normal or High >90
G2 Mildly decreased 60-89
G3a Mildly to moderately decreased 45-59
G3b Moderately to severely decreased 30-44
G4 Severely decreased 15-29
G5 Kidney failure <15
Use of terms such as suspected, likely, concern for, or probable (associated with a specific diagnosis that is being evaluated, monitored, or treated as if it exists) are acceptable and can be coded in the inpatient setting, when documented at the
time of discharge.
Thank you,
Yovanny Hayden RN
CDI Specialist
Please use your independent medical judgment in providing your response.
*Source: Kidney Disease: Improving Global Outcomes (KDIGO) 2012
--- NOTE | 2025-04-01 10:08 | PN.CDI ---
CDI
- -
CDI:
Physician Documentation Request
Admit Date: 03/28/25 21:36
Dear Doctor Matthew,
Please review the following and provide your response in the progress notes.
Clinical Indicators:
- Patient admit for diabetes with hypoglycemia
- 03/28 ER Physician 'patient was found to be confused'
- 03/28 H&P - presented with confusion and tremulousness
Please clarify in the Progress Notes and Discharge Summary which, if any of the following, is the most likely etiology of the confusion/altered mental status.
Encephalopathy - indicate type, such as metabolic, toxic, septic, alcoholic, anoxic, hypertensive etc. due to a specific condition such as UTI, CVA, hyponatremia etc.
Acute Delirium - indicate known or suspected etiology such as postoperative, due to opioids or other drugs etc. Can also indicate unknown or mixed etiologies.
Acute or subacute confusional state due to ____ (specify known or suspected etiology)
Other (please specify)
Use of terms such as suspected, likely, concern for, or probable (associated with a specific diagnosis that is being evaluated, monitored, or treated as if it exists) are acceptable and can be coded in the inpatient setting, when documented at the
time of discharge.
Thank you,
Yovanny Hayden RN
CDI Specialist
Please use your independent medical judgment in providing your response.
== END 2025-03-30 14:02 | disposition home health service (06) | DRG 637 ==
LOC: 4 EAST ACU 21:36
PROVIDERS: ADMITTING PHYSICIAN Hospitalist; ATTENDING PHYSICIAN Internal Medicine; EMERGENCY PHYSICIAN Emergency Medicine
DX: E11.649 Type 2 diabetes mellitus with hypoglycemia without coma (principal); G93.41 Metabolic encephalopathy; F03.A3 Unspecified dementia, mild, with mood disturbance; F03.A4 Unspecified dementia, mild, with anxiety; E11.22 Type 2 diabetes mellitus with diabetic chronic kidney disease; I12.9 Hypertensive chronic kidney disease with stage 1 through stage 4 chronic kidney disease, or unspecified chronic kidney disease; M19.90 Unspecified osteoarthritis, unspecified site; E66.09 Other obesity due to excess calories; Z68.35 Body mass index [BMI] 35.0-35.9, adult; Z86.73 Personal history of transient ischemic attack (TIA), and cerebral infarction without residual deficits; F32.A Depression, unspecified; I25.10 Atherosclerotic heart disease of native coronary artery without angina pectoris; J45.909 Unspecified asthma, uncomplicated; Z79.82 Long term (current) use of aspirin; Z79.84 Long term (current) use of oral hypoglycemic drugs; T38.3X5A Adverse effect of insulin and oral hypoglycemic [antidiabetic] drugs, initial encounter; E78.00 Pure hypercholesterolemia, unspecified; G89.29 Other chronic pain; M25.561 Pain in right knee; M25.562 Pain in left knee; L89.322 Pressure ulcer of left buttock, stage 2; N18.30 Chronic kidney disease, stage 3 unspecified
CPT/HCPCS: 80048; 80053; 82962; 83036; 84443; 85025; 85027; 96374; 97163; 97167; 99284